=== PATIENT | female | born 1990 | race Caucasian/White ===

== ENCOUNTER 2018-07-16 10:41 | Outpatient (CLI) | payer BC, OTHER, MEDICAID ==
--- NOTE | 2018-07-16 11:35 | Non Stress Test Report ---
Non Stress Test Datetime Report Generated by CPN: 07/16/2018 11:35 INDICATION Indication for Study: Ordered by Provider Indication for Study (NST) Other: repeat from the office MONITORING Monitor Explained: Monitor Explained; Test Explained; Patient Verbalized Understanding Time on Monitor: 07/16/2018 10:52 Time on Monitor: 07/16/2018 10:49 Time off Monitor: 07/16/2018 11:22 Time off Monitor: 07/16/2018 11:22 NST Duration: 30 NST Duration: 33 NST INTERVENTIONS NST Interventions: PO Hydration; Reposition Patient Physician Notified NST: K Medel CNM BABY A: [id number] BABY A Movement : Present Movement : Present Contraction Frequency : 0 Contraction Frequency : x1 FHR Baseline : 125 FHR Baseline : 125 Accelerations : 15X15 Accelerations : 15X15 Decelerations : None Decelerations : None Variability : Moderate 6-25bpm Variability : Moderate 6-25bpm NST Review: Meets Criteria for Reactive NST NST Review and Verified By : JACK Cao Results: Reactive NST Results: Reactive NST REPORT Report Trigger: Send Report
== END 2018-07-16 11:30 | disposition home or self-care (01) ==
LOC: LC 10:41
PROVIDERS: ATTEND Obstetrics & Gynecology
PROC: 4A1HXCZ Monitoring of Products of Conception, Cardiac Rate, External Approach (ICD-10-PCS; principal; 2018-07-16)
DX: Z34.93 Encounter for supervision of normal pregnancy, unspecified, third trimester (principal)
CPT/HCPCS: 59025

== ENCOUNTER 2018-07-23 19:19 | Outpatient (CLI) | payer BC, OTHER, MEDICAID ==
[2018-07-23 20:09] LABS: APPEARANCE,URINE SLIGHTLY-CLOUDY; BILIRUBIN,URINE NEGATIVE (NEGATIVE); COLOR,URINE STRAW; GLUCOSE, URINE 150 mg/dL (NEGATIVE); KETONES,URINE NEGATIVE (NEGATIVE); LEUKOCYTE ESTERASE,URINE TRACE (NEGATIVE); NITRITE,URINE NEGATIVE (NEGATIVE); PROTEIN,URINE NEGATIVE (NEGATIVE); URINE SPECIFIC GRAVITY 1.005; UROBILINOGEN,URINE NEGATIVE mg/dL (<2.0)
[2018-07-23 20:25] LABS: URINE AMPHETAMINES SCREEN NEGATIVE; URINE BARBITURATES SCREEN NEGATIVE; URINE BENZODIAZEPINES SCREEN NEGATIVE; URINE COCAINE SCREEN NEGATIVE; URINE MARIJUANA (THC) SCREEN NEGATIVE; URINE METHADONE SCREEN NEGATIVE; URINE PHENCYCLIDINE SCREEN NEGATIVE
--- NOTE | 2018-07-23 21:13 | Non Stress Test Report ---
Non Stress Test Datetime Report Generated by CPN: 07/23/2018 21:13 DEMOGRAPHIC EGA NST: 38.6 INDICATION Indication for Study: Other Indication for Study (NST) Other: labor check MONITORING Monitor Explained: Monitor Explained; Test Explained; Patient Verbalized Understanding Time on Monitor: 07/23/2018 19:48 Time off Monitor: 07/23/2018 20:19 NST Duration: 31 NST INTERVENTIONS NST Interventions: None Physician Notified NST: Hoffmen BABY A: [id number] BABY A Movement : Present Contraction Frequency : 3-6 FHR Baseline : 135 Accelerations : 15X15 Decelerations : None Variability : Moderate 6-25bpm NST Review: Meets Criteria for Reactive NST NST Review and Verified By : Brynn Earl RN NSAdeline Results: Reactive NST COMMENTS NST Comments: pt stable not in labor NST REPORT Report Trigger: Send Report
== END 2018-07-23 21:12 | disposition home or self-care (01) ==
LOC: LC 19:19
PROVIDERS: ATTEND Student in an Organized Health Care Education/Training Program
PROC: 4A1HXCZ Monitoring of Products of Conception, Cardiac Rate, External Approach (ICD-10-PCS; principal; 2018-07-23)
DX: O47.1 False labor at or after 37 completed weeks of gestation (principal); Z3A.38 38 weeks gestation of pregnancy
CPT/HCPCS: 80307; 81005

== ENCOUNTER 2018-07-23 22:33 | Inpatient (IN) | payer BC, OTHER, MEDICAID ==
[2018-07-23] MEDS ORDERED: RINGERS SOLUTION,LACTATED 1,000 ML IV PRN (22:35)
[2018-07-23] MEDS ORDERED: RINGERS SOLUTION,LACTATED 1,000 ML IV ONE (22:35)
[2018-07-23] MEDS ORDERED: MISOPROSTOL 0.2 MG TABLET ONE ×2 (22:55→23:44)
[2018-07-23] MEDS ORDERED: OXYTOCIN/NORMAL SALINE 0 UNIT/0 ML RTUINJ ONE (22:55)
[2018-07-23] MEDS ORDERED: LIDOCAINE 1% INJ-PF (10 MG/ML) 30 ML SDV ONE ×2 (22:55→23:44)
[2018-07-23] MEDS ORDERED: OXYTOCIN/NORMAL SALINE 20 UNIT/1,000 ML RTUINJ IV PRN (23:20)
--- NOTE | 2018-07-23 23:25 | Admission Physical ---
Datetime Report Generated by CPN: 07/23/2018 23:25 CURRENT ADMISSION Chief Complaint: Uterine Contractions; Suspected Ruptured Membranes Indication for Induction: PROM Admit Impression : Term, Intrauterine ; No Active Labor; Ruptured Membranes; Induction of Labor Admit Plan: Admit to Unit; Initiate Labor Protocol; Initiate Labor Induction Protocol ALLERGIES Medication Allergies: Yes Medication Allergies: amoxicillin (07/23/2018) Latex: No Latex Allergies OBSTETRICAL HISTORY EDC: 07/31/2018 00:00 : 2 Para: 0 Gestational Diabetes: Yes Rh Sensitization: No Incompetent Cervix: No DANIEL: No Infertility: No ART Treatment: No Uterine Anomaly: No IUGR: No Hx Previous C/S: No Macrosomia: No Hx Loss/Stillborn: No PIH: No Hx : No Placenta Previa/Abruption: No Depression/PP Depression: No PTL/PROM: No Post Hemorrhage: No Current Procedures: NST SEE RECORDS Alcohol: No Marijuana : No Cocaine: No Other Illicit Drugs: No Cigarettes: Never Smoker. [id number] Cigarette Comments: Hx of chewing tabacco stopped for preg MEDICAL HISTORY Diabetes: No Diabetes Type: Gestational Diabetes Blood Transfusion: No Pulmonary Disease (Asthma, TB): No Breast Disease: No Hypertension: No Negative Assembler Surgery: No Heart Disease: No Hosp/Surgery: No Autoimmune Disorder: No Anesthetic Complications: No Kidney Disease: No Abnormal Pap Smear: No Neuro/Epilepsy: No Psychiatric Disorders: No Other Medical Diseases: No Hepatitis/Liver Disease: No Significant Family History: No Varicosities/Phlebitis: No Trauma/Violence : No Thyroid Dysfunction: No INFECTIOUS HISTORY Gonorrhea: No Genital Herpes: No Chlamydia: No Tuberculosis: No Syphilis: No Hepatitis: No HIV/AIDS Exposure: No Rash or Viral Illness: No HPV: No PHYSICAL EXAM General: Normal HEENT: Normal Neurologic: Normal Thyroid: Deferred Heart: Normal Lungs: Normal Breast: Deferred Back: Normal Abdomen: Normal Genitourinary Exam: Normal Extremities: Normal DTRs: Normal Pelvic Type: Adequate Vital Signs: Reviewed VAGINAL EXAM Dilatation: 2 Effacement: 70 Station: -2 Contraction Comments: q 2-3 MEMBRANES Membranes: Ruptured Amniotic Fluid Color: Clear FETUS A EGA: 38.6 Monitoring: External US FHR- Baseline: 120 Variability: Moderate 6-25bpm Accelerations: 15X15 Decelerations: None FHR Category: Category I Presentation: Vertex Admit Comment: 27yo at 38+6ega presents for suspected PROM. Grossly ruptured membranes. h/o EAB. H/o anxiety - corporate meeting planner. adopted - unknown family history. GDM- diet controlled. Will begin pitocin for IOL due to PROM. Aniticipate . PLANS FOR LABOR AND DELIVERY Pain Management: Epidural Feeding Preference: Breast Benefit of Breast Feed Discussed: Yes Circumcision: N/A INFORMED CONSENT Informed Consent Obtained: Vaginal Delivery; Risks, Benefits and Alternatives Discussed Signature: with User ID: [email or web address]
[2018-07-23 23:35] LABS: ABSOLUTE BASOPHILS # (AUTO) 0.1 10^3/uL (0.0-0.2); ABSOLUTE EOSINOPHILS # (AUTO) 0.1 10^3/uL (0.0-0.6); ABSOLUTE LYMPHOCYTES (AUTO) 1.1 10^3/uL (0.5-4.7); ABSOLUTE MONOCYTES (AUTO) 0.6 10^3/uL (0.1-1.4); ABSOLUTE NEUT (AUTO) 8.9 10^3/uL (1.7-8.2); BASOPHILS % (AUTO) 0.6 % (0-2); EOSINOPHILS % (AUTO) 0.7 % (0-6); HEMATOCRIT 33.9 % (36.0-47.0); HEMOGLOBIN 11.5 g/dL (12.0-15.5); LYMPHOCYTES % (AUTO) 10.5 % (13-45); MEAN CORPUSCULAR HEMOGLOBIN 30.7 pg (27.0-33.4); MEAN CORPUSCULAR HGB CONC 33.8 g/dL (32.0-36.0); MEAN CORPUSCULAR VOLUME 91 fl (80-97); MONOCYTES % (AUTO) 5.9 % (3-13); PLATELET COUNT 275 10^3/uL (150-450); RED BLOOD COUNT 3.74 10^6/uL (3.72-5.28); RED CELL DISTRIBUTION WIDTH 15.6 % (11.5-14.0); SEGMENTED NEUTROPHILS % (AUTO) 82.3 % (42-78); TOTAL CELLS COUNTED % (AUTO) 100 %; WHITE BLOOD COUNT 10.8 10^3/uL (4.0-10.5)
[2018-07-23] MEDS ORDERED: ONDANSETRON HCL INJ/PF 4 MG/2 ML SDV IV ONE (23:39)
[2018-07-23] MEDS ORDERED: ONDANSETRON HCL INJ/PF 4 MG/2 ML SDV ONE (23:44)
[2018-07-23] MEDS ORDERED: OXYTOCIN/NORMAL SALINE 20 UNIT/1,000 ML RTUINJ ONE (23:44)
[2018-07-23] MEDS ORDERED: OXYTOCIN 10 UNIT/ML VIAL ONE (23:44)
[2018-07-24] MEDS ORDERED: EPHEDRINE SULFATE INJ 50 MG/1 ML AMPULE ONE (00:08)
[2018-07-24] MEDS ORDERED: PHENYLEPHRINE HCL INJ/PF 10 MG/1 ML SDV ONE (00:08)
[2018-07-24] MEDS ORDERED: FENTANYL CITRATE INJ/PF 100 MCG/2 ML AMPUL ONE (00:08)
[2018-07-24] MEDS ORDERED: BUPIVACAINE HCL 0.25 % INJ/PF (2.5 MG/1 ML) 30 ML VIAL ONE (00:09)
[2018-07-24] MEDS ORDERED: FENTANYL/BUPIVACAINE/NS/PF 300 MCG/150 ML RTUINJ EPI ONE (00:09)
[2018-07-24] MEDS ORDERED: DIPH/PERTUSS(ACELL)/TETANUS VAC/PF 0.5 ML SYR (>=10YO) IM PRN (06:38)
[2018-07-24] MEDS ORDERED: ACETAMINOPHEN WITH CODEINE #3 TABLET PO PRN (06:38)
[2018-07-24] MEDS ORDERED: BENZOCAINE/MENTHOL AEROSOL SPRAY 56 ML TOP PRN (06:38)
[2018-07-24] MEDS ORDERED: PROMETHAZINE HCL INJ 25 MG/1 ML VIAL IV PRN (06:38)
[2018-07-24] MEDS ORDERED: ZOLPIDEM TARTRATE 5 MG TABLET PO PRN (06:38)
[2018-07-24] MEDS ORDERED: MAGNESIUM HYDROXIDE SUSP 30 ML UDCUP PO PRN (06:38)
[2018-07-24] MEDS ORDERED: PROMETHAZINE HCL 25 MG SUPP.RECT PR PRN (06:38)
[2018-07-24] MEDS ORDERED: GLYCERIN/WITCH HAZEL LEAF 1 EACH MED..PAD TP PRN (06:38)
[2018-07-24] MEDS ORDERED: DIPHENHYDRAMINE HCL 25 MG CAPSULE PO PRN (06:38)
[2018-07-24] MEDS ORDERED: ACETAMINOPHEN 650 MG SUPP.RECT PR PRN (06:38)
[2018-07-24] MEDS ORDERED: PROMETHAZINE HCL 25 MG TABLET PO PRN (06:38)
[2018-07-24] MEDS ORDERED: PSEUDOEPHEDRINE HCL 30 MG TABLET PO PRN (06:38)
[2018-07-24] MEDS ORDERED: DIBUCAINE 1% OINTMENT 28 GM TP PRN (06:38)
[2018-07-24] MEDS ORDERED: MEASLES,MUMPS&RUBELLA VACC/PF 0.5 ML VIAL SUBCUT PRN (06:38)
[2018-07-24] MEDS ORDERED: OXYTOCIN/NORMAL SALINE 20 UNIT/1,000 ML RTUINJ IV PRN (06:38)
[2018-07-24] MEDS ORDERED: NA PHOS,M-B/NA PHOS,DI-BA (ADULT) 133 ML ENEMA PR PRN (06:38)
[2018-07-24] MEDS ORDERED: SENNOSIDES/DOCUSATE 8.6-50 MG 1 EACH TABLET PO ONE (07:15)
[2018-07-24] MEDS ORDERED: ACETAMINOPHEN WITH CODEINE #3 TABLET ONE (07:45)
[2018-07-24] MEDS ORDERED: IBUPROFEN 800 MG TABLET ONE (07:46)
[2018-07-24] MEDS: ACETAMINOPHEN WITH CODEINE #3 TABLET PO PRN ×2 (07:51→19:39)
[2018-07-24] MEDS: DOCUSATE SODIUM 100 MG CAPSULE PO SCH ×2 (10:32→17:21)
[2018-07-24] MEDS: FERROUS SULFATE 325 MG TABLET PO SCH ×2 (10:32→17:21)
[2018-07-24] MEDS: FAMOTIDINE 20 MG TABLET PO SCH ×2 (10:32→21:19)
[2018-07-24] MEDS: PRENATAL VITAMIN W DHA CAPSULE PO SCH (10:32)
[2018-07-24] MEDS: IBUPROFEN 800 MG TABLET PO SCH ×2 (13:52→21:18)
[2018-07-25] MEDS: IBUPROFEN 800 MG TABLET PO SCH ×3 (05:12→21:27)
[2018-07-25 08:26] LABS: HEMATOCRIT 27.2 % (36.0-47.0); MEAN CORPUSCULAR HEMOGLOBIN 31.5 pg (27.0-33.4); MEAN CORPUSCULAR HGB CONC 34.5 g/dL (32.0-36.0); MEAN CORPUSCULAR VOLUME 92 fl (80-97); PLATELET COUNT 218 10^3/uL (150-450); RED BLOOD COUNT 2.97 10^6/uL (3.72-5.28); RED CELL DISTRIBUTION WIDTH 16.2 % (11.5-14.0); WHITE BLOOD COUNT 9.2 10^3/uL (4.0-10.5)
[2018-07-25 08:42] LABS: HEMOGLOBIN 9.4 g/dL (12.0-15.5)
[2018-07-25] MEDS: FAMOTIDINE 20 MG TABLET PO SCH ×2 (10:26→21:28)
[2018-07-25] MEDS: FERROUS SULFATE 325 MG TABLET PO SCH ×2 (10:27→18:40)
[2018-07-25] MEDS: PRENATAL VITAMIN W DHA CAPSULE PO SCH (10:27)
[2018-07-25] MEDS: DOCUSATE SODIUM 100 MG CAPSULE PO SCH ×2 (10:27→18:40)
[2018-07-25] MEDS: SENNOSIDES/DOCUSATE 8.6-50 MG 1 EACH TABLET PO SCH (10:27)
--- NOTE | 2018-07-25 10:47 | PDOC PROGRESS REPORT ---
Subjective-OB Progress Note for:: 07/25/18 - PP Day #1, doing well, , O+, Rubella Immune, no complaints Physical Exam (OB) Vital Signs: Temp Pulse Resp BP Pulse Ox 98.1 F 89 18 115/61 98 07/24/18 19:57 07/24/18 19:57 07/24/18 19:57 07/24/18 19:57 07/24/18 19:57 Intake & Output 07/24/18 07/25/18 07/26/18 06:59 06:59 06:59 Intake Total 300 Balance 300 Weight 65.317 kg - General General Appearance: Appears well, Alert In distress: None - PIH/Pre-Eclampsia DTR's: 2 + Clonus: Negative Headache: Absent Epigastric Pain: No Visual Changes: No - Lochia Lochia Amount: Scant < 10 ml Lochia Color: Rubra/Red - Abdomen Description: Tender, Soft Hernia Present: No Fundal Description: Firm Fundal Height: u/u - u/2 - Respiratory Respiratory Status: No respiratory distress - Abdominal Distension: No distension - Genitourinary Genitourinary Note: voiding - Extremities Upper extremity: Normal inspection Lower extremities: Normal inspection - Neurological Cognition: Normal Orientation: AAOx4 - Psychological Associated symptoms: Normal affect, Normal mood - Skin Skin Temperature: Warm Skin Moisture: Dry Objective-Diagnostic Laboratory: 07/25/18 07:25 07/25/18 07:25 WBC 9.2 RBC 2.97 L Hgb 9.4 L D Hct 27.2 L MCV 92 MCH 31.5 MCHC 34.5 RDW 16.2 H Plt Count 218 Assessment and Plan(PN) - Assessment and Plan (1) (normal spontaneous vaginal delivery) Is this a current diagnosis for this admission?: Yes (2) Anemia, Is this a current diagnosis for this admission?: Yes (3) Premature rupture of membranes Qualifiers: PROM onset of labor timing: onset of labor within 24 hours of rupture Is this a current diagnosis for this admission?: Yes - Time Spent with Patient Time with patient: Less than 15 minutes Medications reviewed and adjusted accordingly: Yes - Disposition Anticipated Discharge: Home Within: within 24 hours
[2018-07-25] MEDS: ACETAMINOPHEN WITH CODEINE #3 TABLET PO PRN ×2 (14:06→21:27)
[2018-07-26] MEDS: IBUPROFEN 800 MG TABLET PO SCH (05:25)
[2018-07-26 08:14] VITALS: BP 106/68
--- NOTE | 2018-07-26 08:34 | Delivery Summary ---
Del Sum A-C Datetime Report Generated by CPN: 07/26/2018 08:34 DELIVERY PERSONNEL DELIVERY PERSONNEL: [id number] Delivery Doctor:: Thea Gordon MD Labor and Delivery Nurse:: Nora Mtz RNsupervisor benzene refining Nurse:: Rianna Johnson RN Vp Packaging/RECOVERY COACH: Yann Ertel, RECOVERY COACH MATERNAL INFORMATION Delivery Anesthesia: Epidural Medications After Delivery: Pitocin Drip 20 Units/1000ml NSS Maternal Complications: None Complication Details: GDM Provider Comments: VFI delivered in MARIT[place] presentation with loose nuchal cord. SHoulders and body delivered without difficulty. Cord doubly clamped and cut and to maternal abdomen for NRP. Placenta delivered intact spontaneously. FF at U. 2nd degree perineal laceration repaired in usual fashion. Good hemostasis. Mother and baby stable upon provider leaving the room. LABOR SUMMARY EDC: 07/31/2018 00:00 EDC: 07/31/2018 00:00 No. Babies in Womb: 1 Attempted: No Labor Anesthesia: Epidural LABOR INFORMATION Reason for Induction: Premature Rupture of Membranes Onset of Labor: 07/24/2018 00:00 Complete Dilatation: 07/24/2018 05:26 Oxytocin: Augmentation Group B Beta Strep: Neg Antibiotics # of Doses: 0 Steroids Given: None Reason Steroids Not Administered: Not Applicable MEMBRANES Membranes Rupture Method: Spontaneous Rupture of Membranes: 07/23/2018 22:15 Length of Rupture (hr): 7.62 Amniotic Fluid Color: Clear Amniotic Fluid Amount: Scant Amniotic Fluid Odor: Normal STAGES OF LABOR Stage 1 hr: 5 Stage 1 min: 26 Stage 2 hr: 0 Stage 2 min: 26 Stage 3 hr: 0 Stage 3 min: 2 Total Time in Labor hr: 5 Total Time in Labor min: 54 VAGINAL DELIVERY Episiotomy: None Laceration #1: Perineal Laceration Extension #1: Second Degree Laceration Repair: Yes Laceration Repair Note: 2nd degree perineal laceration repaired in usual fashion Sponge Count Correct: Yes Sharps Count Correct: Yes BABY A INFORMATION Delivery Date/Time: 07/24/2018 05:52 Method of Delivery: Vaginal Method of Delivery: Vaginal Born in Route : No : N/A Forceps: N/A Vacuum Extraction: N/A Shoulder Dystocia : No PRESENTATION/POSITION BABY A Presentation: Cephalic Cephalic Presentation: Vertex Vertex Position: Left Occipital Anterior Breech Presentation: N/A PLACENTA INFORMATION BABY A Placenta Delivery Time : 07/24/2018 05:54 Placenta Method of Delivery: Spontaneous Placenta Status: Delivered SCORES BABY A Heart Rate 1 min: >100 bpm Resp Effort 1 min: Good Cry Reflex Irritability 1 min: Cough or Sneeze or Pulls Away Muscle Tone 1 min: Active Motion Color 1 min: Blue/Pale Resuscitation Effort 1 min: Tactile Stimulation SCORE 1 MIN: 8 Heart Rate 5 min: >100 bpm Resp Effort 5 min: Good Cry Reflex Irritability 5 min: Cough or Sneeze or Pulls Away Muscle Tone 5 min: Active Motion Color 5 min: Body [place], Extremities Blue Resuscitation Effort 5 min: Tactile Stimulation SCORE 5 MIN: 9 INFANT INFORMATION BABY A Gestational Age at Delivery: 39.0 Gestational Status: Full Term- 39- 40.6 Weeks Infant Outcome : Liveborn Condition : Stable Sex: Female Infant Sex: Female IDENTIFICATION BABY A Verification Date/Time: 07/24/2018 06:22 ID Band Number: [id number] Mother's Name Verified: Yes Infant RN Verifying Infant: funmilayo lau Additional Verifying Personnel: funmilayo johnson WEIGHT/LENGTH BABY A Infant Birthweight (gm): 3230 Infant Weight (lb): 7 Infant Weight (oz): 2 Length (in): 20.25 Length (cm): 51.44 CORD INFORMATION BABY A Nuchal Cord : Around Neck x1, Loose Cord Blood Taken: Yes-For Storage (Mom's Blood type +) Suction: Mouth; Nose ASSESSMENT BABY A Skin to Skin: Yes Skin to Skin: Yes SIGNATURES Signature: with User ID: [email or web address]
--- NOTE | 2018-07-26 09:34 | PDOC PROGRESS REPORT ---
Subjective-OB Progress Note for:: 07/26/18 Subjective: Doing well, no c/o, ready to go home, scant bleeding Physical Exam (OB) Vital Signs: Temp Pulse Resp BP Pulse Ox 97.4 F 68 16 106/68 100 07/26/18 08:49 07/26/18 08:49 07/26/18 08:49 07/26/18 08:49 07/26/18 08:49 Intake & Output 07/25/18 07/26/18 07/27/18 06:59 06:59 06:59 Intake Total 300 240 Balance 300 240 Weight 65.317 kg - PIH/Pre-Eclampsia DTR's: 2 + Clonus: Negative Headache: Absent Epigastric Pain: No Visual Changes: No - Lochia Lochia Amount: Scant < 10 ml Lochia Color: Rubra/Red - Abdomen Description: Soft, Round Hernia Present: No Fundal Description: Firm, Midline Fundal Height: u/u - u/2 Objective-Diagnostic Laboratory: 07/25/18 07:25 Assessment and Plan(PN) - Assessment and Plan (1) Gestational diabetes mellitus Qualifiers: Gestational diabetes mellitus control: diet-controlled Is this a current diagnosis for this admission?: Yes (2) (normal spontaneous vaginal delivery) Is this a current diagnosis for this admission?: Yes (3) Anemia, Is this a current diagnosis for this admission?: Yes (4) Premature rupture of membranes Qualifiers: PROM onset of labor timing: onset of labor within 24 hours of rupture PROM gestational age: full term Qualified Code(s): O42.02 - Full-term premature rupture of membranes, onset of labor within 24 hours of rupture Is this a current diagnosis for this admission?: Yes - Time Spent with Patient Time with patient: Less than 15 minutes Medications reviewed and adjusted accordingly: Yes - Disposition Anticipated Discharge: Home Within: within 24 hours
--- NOTE | 2018-07-26 09:37 | PDOC DISCHARGE SUMMARY ---
Final Diagnosis Discharge Date: 07/26/18 - Final Diagnosis (1) Gestational diabetes mellitus Is this a current diagnosis for this admission?: Yes (2) (normal spontaneous vaginal delivery) Is this a current diagnosis for this admission?: Yes (3) Anemia, Is this a current diagnosis for this admission?: Yes (4) Premature rupture of membranes Is this a current diagnosis for this admission?: Yes Discharge Data - Discharge Medication Home Medications: Vit,Calc76/Iron/Folic [Prenatabs Rx Tablet] 1 tab PO DAILY 07/16/18 Ferrous Sulfate [Iron] 325 mg PO DAILY 07/23/18 Gestational Age: 39 Reason(s) for Admission: Onset of Labor, Gestional Diabetes Procedures: NST, Ultrasound Intrapartum Procedure(s): Spontaneous Vaginal Delivery Complication(s): Laceration-Perineal Laceration-Degree: 2nd - [place] Data Baby 1 Female at 1 minute: 8 at 5 minutes: 9 Weight: 3.232 kg Home with Mother: Yes Complications: No - Diagnosis Test Laboratory: Temp Pulse Resp BP Pulse Ox 97.4 F 68 16 106/68 100 07/26/18 08:49 07/26/18 08:49 07/26/18 08:49 07/26/18 08:49 07/26/18 08:49 07/23/18 07/25/18 22:53 07:25 RBC 3.74 2.97 L Hgb 11.5 L 9.4 L D Hct 33.9 L 27.2 L - Discharge information/Instructions Discharge Activity: Activity As Tolerated, Balance Activity w/Rest Discharge Diet: As Tolerated, Regular Disposition: HOME, SELF-CARE Follow up with: [facility] in: 2, Weeks
[2018-07-26] MEDS: PRENATAL VITAMIN W DHA CAPSULE PO SCH (10:32)
[2018-07-26] MEDS: FERROUS SULFATE 325 MG TABLET PO SCH (10:33)
[2018-07-26] MEDS: SENNOSIDES/DOCUSATE 8.6-50 MG 1 EACH TABLET PO SCH (10:33)
[2018-07-26] MEDS: DOCUSATE SODIUM 100 MG CAPSULE PO SCH (10:33)
[2018-07-26] MEDS: FAMOTIDINE 20 MG TABLET PO SCH (10:33)
== END 2018-07-26 12:05 | disposition home or self-care (01) | DRG 807 ==
LOC: LC 22:33 → LR 22:39 → 2S 07-24 08:40
PROVIDERS: ADMIT Student in an Organized Health Care Education/Training Program; ATTEND Student in an Organized Health Care Education/Training Program
PROC: 10E0XZZ Delivery of Products of Conception, External Approach (ICD-10-PCS; principal; 2018-07-24)
PROC: 0KQM0ZZ Repair Perineum Muscle, Open Approach (ICD-10-PCS; 2018-07-24)
PROC: 4A1HX4Z Monitoring of Products of Conception, Cardiac Electrical Activity, External Approach (ICD-10-PCS; 2018-07-24)
DX: O42.92 Full-term premature rupture of membranes, unspecified as to length of time between rupture and onset of labor (principal); Z37.0 Single live birth; O24.420 Gestational diabetes mellitus in childbirth, diet controlled; O70.1 Second degree perineal laceration during delivery; O69.81X0 Labor and delivery complicated by cord around neck, without compression, not applicable or unspecified; Z3A.38 38 weeks gestation of pregnancy; Z88.1 Allergy status to other antibiotic agents; O90.81 Anemia of the puerperium
CPT/HCPCS: 36415; 85025; 85027; 86592; 86850; 86900; 86901; J2370; J2405; J2590; J3010; J3490

== ENCOUNTER 2018-08-28 20:01 | Emergency (ER) | payer BC, OTHER, MEDICAID | END 2018-08-28 20:40 | disposition left against medical advice (07) | LOC: ER 20:01 | DX: Z53.21 Procedure and treatment not carried out due to patient leaving prior to being seen by health care provider (principal) ==